=== PATIENT | female | born 1990 | race Caucasian/White ===

== ENCOUNTER 2022-12-13 08:17 | Emergency (ER) | payer OTHER ==
[2022-12-13 08:24] VITALS: RESP 18; TEMP 98.2
[2022-12-13] MEDS ORDERED: SODIUM CHLORIDE 0.9% 1,000 ML IV STA (08:28)
[2022-12-13] MEDS ORDERED: levETIRAcetam IV 500 MG/5 ML VIAL IVP STA (08:29)
[2022-12-13] MEDS ORDERED: METHADONE 10 MG TAB PO STA (08:55)
[2022-12-13] MEDS ORDERED: levETIRAcetam 500 MG TAB PO STA (09:15)
--- NOTE | 2022-12-13 09:38 | ED ---
General Adult HPI - General Chief complaint: Seizure Stated complaint: Seizure Time Seen by Provider: 12/13/22 08:22 Source: patient, EMS, RN notes reviewed, old records reviewed Mode of arrival: EMS Limitations: no limitations - History of Present Illness Initial comments: Patient is a 32-year-old female with past medical history remarkable for epileps y on Keppra, currently approximately 12 weeks presents emergency Department after a witnessed seizure that lasted approximately 2 minutes. Is currently at [facility]. Receiving treatment for rehab. Is on methadone. Patient previously was withdrawing from benzos last week, however she had an extensive hospital stay at an outside hospital where they weaned her off benzodiazepines and she has been off benzos for a total of 4-5 days. This is after slowly stepping down her benzodiazepine usage. States she has not taken them since her hospital stay. Does have a history of epilepsy and is on Keppra. States she had her morning dose of Keppra however it was a few minutes prior to her having seizure this morning. Denies biting her tongue or urinary incontinence. Patient is currently back to her baseline mental status, alert and oriented 4. No acute complaints at this time. Is requesting her methadone which she did not take this morning. Is on 40 mg twice a day. States she does have breakthrough seizures intermittently. Does have a polysubstance abuse history. Presents from rehab for evaluation for the breakthrough seizure. - Related Data Home Medications Medication Instructions Recorded Confirmed Acetaminophen [Tylenol] 650 mg PO Q4H PRN 12/13/22 12/13/22 Albuterol Sulfate [Albuterol 1 - 2 puff PO RT-Q4H PRN 12/13/22 12/13/22 Sulfate Hfa] Gabapentin 600 mg PO TID 12/13/22 12/13/22 Methadone [Dolophine] 40 mg PO BID 12/13/22 12/13/22 levETIRAcetam [Keppra] 500 mg PO Q12HR 12/13/22 12/13/22 Allergies Allergy/AdvReac Type Severity Reaction Status Date / Time haloperidol [From Haldol] Allergy Anaphylaxis Verified 12/13/22 08:45 Iodinated Contrast Media AdvReac Rash/Hives Verified 12/13/22 08:45 latex AdvReac Rash/Hives Verified 12/13/22 08:45 Review of Systems ROS Statement: Those systems with pertinent positive or pertinent negative responses have been documented in the HPI. Review of Systems: CONST: Denies fever EYES: Denies blurry vision ENT: Denies nasal congestion C/V: Denies Chest pain RESP: Denies shortness of breath GI: Denies abdominal pain : Denies dysuria SKIN: Denies rash. MSK: Denies joint pain. NEURO: Denies headache ROS Other: All systems not noted in ROS Statement are negative. Past Medical History Past Medical History: Atrial Fibrillation History of Any Multi-Drug Resistant Organisms: MRSA Past Surgical History: Appendectomy, Cholecystectomy Smoking Status: Current every day smoker Past Alcohol Use History: None Reported Past Drug Use History: Cocaine, Heroin, Marijuana General Exam - General Exam Comments Initial Comments: General: Appears in no acute distress. HEAD: Normal with no signs of head trauma. EYES: PERRLA, EOMI, conjunctiva normal, no discharge. ENT: Hearing grossly intact, normal oropharynx. RESPIRATORY: Clear breath sounds bilaterally. No wheezes, rales, or rhonchi. C/V: Regular rate and rhythm. S1 and S2 auscultated, no edema, peripheral pulses 2+ and intact throughout ABD: Abd is soft, nontender, nondistended EXT: Normal range of motion, no obvious deformity SKIN: No rashes or lesions observed on exposed skin. NEURO: Alert and oriented x 4. Cranial nerves II-XII intact. No focal sensory or strength deficits. GCS of 15. NIH of 0. A laboratory without issue. Limitations: no limitations Course Vital Signs 12/13/22 12/13/22 08:20 09:53 Temperature 98.2 F Pulse Rate 99 92 Respiratory 18 18 Rate Blood Pressure 100/69 104/61 O2 Sat by Pulse 100 98 Oximetry Medical Decision Making - Medical Decision Making Was pt. sent in by a medical professional or institution (, PA, MEDICAL ADMINISTRATIVE TECHNICIAN, urgent care, hospital, or intermediate...) When possible be specific @ -No Did you speak to anyone other than the patient for history (EMS, parent, family, police, friend...)? What history was obtained from this source @ -No Did you review nursing and triage notes (agree or disagree)? Why? @ -I reviewed and agree with nursing and triage notes Were old charts reviewed (outside hosp., previous admission, EMS record, old EKG, old radiological studies, urgent care reports/EKG's, intermediate records)? Report findings @ -No old charts were reviewed Differential Diagnosis (chest pain, altered mental status, abdominal pain women, abdominal pain men, vaginal bleeding, weakness, fever, dyspnea, syncope, headache, dizziness, GI bleed, back pain, seizure, CVA, palpatations, mental health, musculoskeletal)? @ -Differential Seizure: Recurrent seizure disorder, febrile seizure, alcohol withdrawal, stimulants, meningitis, encephalitis, intercranial hemorrhage, intracranial tumor, stroke, eclampsia, thyrotoxicosis, hypocalcemia, hyponatremia, hypernatremia, hypomagnesemia, psychogenic, this is not meant to be an all-inclusive list. EKG interpreted by me (3pts min.). @ -As above X-rays interpreted by me (1pt min.). @ -None done CT interpreted by me (1pt min.). @ -None done U/S interpreted by me (1pt. min.). @ -None done What testing was considered but not performed or refused? (CT, X-rays, U/S, labs)? Why? @ -I offered blood work on the patient which was declined. She is alert and oriented 4, able to make her own decisions. No acute distress. No acute intoxication. What meds were considered but not given or refused? Why? @ -None Did you discuss the management of the patient with other professionals (professionals i.e. , PA, MEDICAL ADMINISTRATIVE TECHNICIAN, lab, RT, psych nurse, social service worker, certified medical coding specialist, teacher, tax revenue officer, correctional casework specialist)? Give summary @ -[facility] nursing staff to call back and were requesting a Keppra level, however as the patient is alert and oriented, refusing blood draws, at her baseline, I cannot force her to get blood work. I informed them that typically we would not obtain a Keppra level as it does take potentially multiple days for the results to come back. As the patient is back to her baseline typically we would not perform a Keppra level on this patient unless admitted. I did discuss this with them and they expressed understanding. Was smoking cessation discussed for >3mins.? @ -No Was critical care preformed (if so, how long)? @ -No Were there social determinants of health that impacted care today? How? (Homelessness, low income, unemployed, alcoholism, drug addiction, transportation, low edu. Level, literacy, decrease access to med. care, penitentiary, rehab)? @ -No Was there de-escalation of care discussed even if they declined (Discuss DNR or withdrawal of care, Hospice)? DNR status @ -No What co-morbidities impacted this encounter? (DM, HTN, Smoking, COPD, CAD, Cancer, CVA, ARF, Chemo, Hep., AIDS, mental health diagnosis, sleep apnea, morbid obesity)? @ -Epilepsy on Keppra. Polysubstance abuse. Was patient admitted / discharged? Hospital course, mention meds given and route, prescriptions, significant lab abnormalities, going to OR and other pertinent info. @ -Based on the patient's presentation and physical exam, I'm concerned for what sounds like a breakthrough seizure with a history of epilepsy for the patient. 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 She does have a history separately of epilepsy, on Keppra which she believes she has been compliant with. She is due for methadone this morning as well. Exam is all within normal limits. She has no acute complaints. I did offer an IV to obtain basic labs which she declines, and she states she feels fine and she is a difficult IV draw. Patient is at her normal baseline mental status in no acute distress and is currently not intoxicated. We will give her dose of her morning methadone and she did not receive this morning as well as a double dose of her Keppra. She was in agreement this plan. Vital signs within acceptable limits. We'll observe the patient for an hour and a half here in the emergency department. EKG was obtained, and revealed no obvious acute process. No concern for eclampsia at this time as she is not hypertensive and is also me in her first trimester. I did discuss with the patient that I do not believe this is related to her benzodiazepine use, as she has been off it for 4-5 days and was weaned off it slowly her prior hospital stay and has not taken any since. She was in agreement and also feels this is her normal breakthrough seizure with history of epilepsy. On reevaluation, patient remains asymptomatic. We did discuss her breakthrough seizure and the importance of compliance with antiepileptic medications. She was in agreement this plan. She'll be discharged back to [facility] at this time. Strict return precautions discussed. I informed her she cannot drive for at least 6 months per law due to her breakthrough seizure today. She was in agreement this plan as well. I instructed the patient to follow up with their PCP in the next 1-3 days. I explained that the patient should return to the emergency department if they experience any worsening symptoms. Strict return precautions were discussed with the patient. The patient expressed understanding of these instructions. I answered all questions that the patient had. The patient was discharged home in good condition with their prescriptions and follow up information. Undiagnosed new problem with uncertain prognosis? @ -No Drug Therapy requiring intensive monitoring for toxicity (Heparin, Nitro, Insulin, Cardizem)? @ -No Were any procedures done? @ -No Diagnosis/symptom? @ -Breakthrough seizure with history of epilepsy, history of polysubstance abuse Acute, or Chronic, or Acute on Chronic? @ -Acute on chronic Uncomplicated (without systemic symptoms) or Complicated (systemic symptoms)? @ -Complicated Side effects of treatment? @ -No Exacerbation, Progression, or Severe Exacerbation? @ -No Poses a threat to life or bodily function? How? (Chest pain, [place], ID, pneumonia, PE, COPD, DKA, ARF, appy, cholecystitis, CVA, Diverticulitis, Homicidal, Suicidal, threat to staff... and all critical care pts) @ -No - EKG Data -: EKG Interpreted by Me EKG Comments: 12-lead Electrocardiogram Interpretation Note EKG was reviewed and interpreted by myself. 12-lead ECG performed at 0838 is interpreted by me as revealing normal sinus rhythm at a rate of 82 beats per minute. [place] is normal. DE interval is 155 ms, QRS duration is 89 ms, QTc is 432 ms.. There were no ST or T wave abnormalities to suggest myocardial ischemia or injury. R wave progression across the precordium was satisfactory. By my interpretation this EKG is non-diagnostic for acute ischemia. Disposition Clinical Impression: Seizure, Polysubstance abuse Disposition: HOME SELF-CARE Condition: Good Instructions (If sedation given, give patient instructions): Recurrent Seizures in Adults (ED) Is patient prescribed a controlled substance at d/c from ED?: No Referrals: Genaro Lares DO [Primary Care Provider] - 1-2 days Time of Disposition: 09:45
[2022-12-13 09:55] VITALS: BP 104/61; PULSE 92
== END 2022-12-13 09:47 | disposition home or self-care (01) ==
LOC: EC 08:17
DX: O99.351 Diseases of the nervous system complicating pregnancy, first trimester (principal); O99.321 Drug use complicating pregnancy, first trimester; O99.331 Smoking (tobacco) complicating pregnancy, first trimester; R56.9 Unspecified convulsions; F19.10 Other psychoactive substance abuse, uncomplicated; F17.200 Nicotine dependence, unspecified, uncomplicated; I48.91 Unspecified atrial fibrillation; Z79.899 Other long term (current) drug therapy; Z88.8 Allergy status to other drugs, medicaments and biological substances; Z91.040 Latex allergy status; Z90.49 Acquired absence of other specified parts of digestive tract; Z3A.12 12 weeks gestation of pregnancy
CPT/HCPCS: 93005; 99284; S0109

== ENCOUNTER 2023-04-01 13:50 | Outpatient (CLI) | payer OTHER ==
[2023-04-01 16:29] VITALS: BP 130/61; PULSE 93; RESP 16; TEMP 97.2
--- NOTE | 2023-05-04 09:50 | P.MSEPDOC ---
Presenting Problems - Arrival Data Date of Arrival on Unit: 04/01/23 Time of Arrival on Unit: 13:50 Mode of Transport: EMS - Complaint OB-Reason for Admission/Chief Complaint: Possible Onset of Labor Comment: from [facility], , posible labor . r c/s . breech. 28 2/7 weeks. pt denies contx. wants to go back to [place]. methadon 60 mg a day. Medical History - Information : 2 Para: 1 Term: 1 : 0 Abortions: Spontaneous or Elective: 0 Number of Living Children: 1 - Gestational Age Gestational Age by EDGAR (wks/days): 28 Weeks and 1 Days - History Complications: No Care, Prior , Smoker, Hx. Substance Abuse Comment: currently has care in [facility] Review of Systems - Review of Systems Constitutional: No problems Breast: No problems ENT: No problems Cardiovascular: No problems Respiratory: No problems Gastrointestinal: No problems Genitourinary: No problems Musculoskeletal: No problems Neurological: No problems Skin: No problems Vital Signs - Temperature Temperature: 97.2 F Temperature Source: Temporal Artery Scan - Pulse Apical Pulse Rate: 93 Pulse Assessment Method: Palpation - Respirations Respiratory Rate: 16 Oxygen Delivery Method: Room Air O2 Sat by Pulse Oximetry: 98 - Blood Pressure Right Arm Blood Pressure: 130/61 Blood Pressure Mean: 84 Blood Pressure Source: Automatic Cuff Medical Screen Scoring - Cervical Exam Membranes: Intact - Uterine Contractions Intensity: Absent - Assessment - Baby A Baseline FHR: 140 Heart Rate - NICHD Category: Category I (Normal) NST: Reactive Physician Notification - Physician Notified Physician Notified Date: 04/01/23 Physician Notified Time: 14:33 Physician: DEANNA New Order Received: Yes (home with instructions) Maternal Triage Index - Scheduled/Requesting Priority 5 Scheduled/Requesting Priority 5: Yes Criteria Met for Priority 5: 28 1/7. from [facility]. reactive nst. metadone 60mg daily. denies contx and denies bleeding , denies srom Disposition - Disposition OB Disposition: Discharge to home, Written follow up instructions reviewed Discharge Date: 04/01/23 Discharge Time: 14:40 I agree with the RN Medical Screening Exam: Yes Case reviewed; plan agreed upon as documented in EMR&OBIX.: Yes Diagnosis: rule out labor
== END 2023-04-01 14:45 | disposition home or self-care (01) ==
LOC: FBPOP 13:50
PROVIDERS: ATTEND Obstetrics & Gynecology
DX: O47.03 False labor before 37 completed weeks of gestation, third trimester (principal); O99.333 Smoking (tobacco) complicating pregnancy, third trimester; F17.200 Nicotine dependence, unspecified, uncomplicated; Z3A.28 28 weeks gestation of pregnancy; Z91.040 Latex allergy status; Z91.041 Radiographic dye allergy status; Z88.8 Allergy status to other drugs, medicaments and biological substances
CPT/HCPCS: 59025; G0463; 99213